=== PATIENT | female | born 1950 | race Caucasian/White ===

== ENCOUNTER 2019-08-12 06:08 | Day surgery (SDC) | payer MEDICARE ==
[2019-08-09 15:32] VITALS: BMI 25.0
[2019-08-12] MEDS ORDERED: Phenylephrine 2.5% Ophth Soln 5 ML BOT ONE (06:15)
[2019-08-12] MEDS ORDERED: Cyclopentolate 1% Opth Drop 2 ML BOT ONE (06:15)
[2019-08-12] MEDS ORDERED: Fluorouracil 100 MG, Enoxaparin Sodium 25 MG, EPINEPHrine 0.3 MG in Ophthalmic Irrigati... IRR SCH (06:25)
[2019-08-12] MEDS ORDERED: Midazolam HCl 2 mg/2 ml Vial ONE ×2 (06:40→06:42)
[2019-08-12] MEDS ORDERED: PROPOFOL 20 ML ONE (06:40)
[2019-08-12] MEDS ORDERED: Fentanyl 100 MCG/2 ML VIAL ONE (06:40)
--- NOTE | 2019-08-12 08:41 | OP ---
DATE OF PROCEDURE: 08/12/2019 PREOPERATIVE DIAGNOSIS: Macular hole, right eye. POSTOPERATIVE DIAGNOSIS: Macular hole, right eye. PROCEDURE PERFORMED: Pars plana vitrectomy, internal limiting membrane peel, right eye. ANESTHESIA: Local with monitored anesthesia care. DESCRIPTION OF PROCEDURE: The patient was identified in the preoperative holding area. Appropriate informed consent for the planned surgical procedure for the right eye had been obtained. The patient was transported to the operative suite. Appropriate cardiopulmonary monitoring was established. Local anesthesia was obtained using retrobulbar modified Van Lint lid block using 50:50 mixture of 4% lidocaine and 0.75% bupivacaine. The patient was prepped and draped in usual sterile manner for ophthalmic surgery on the right eye. Lid speculum was placed in the right eye. A 25-gauge trocar was placed in the conjunctiva sclera superotemporally, inferotemporally, supranasally. Infusion line was placed inferotemporally. Light pipe vitreous cutter was inserted into the eye. Core vitrectomy was performed. Posterior hyaloid face was noted to be rigidly adherent and peeled across the macula using vacuum after instillation of a small amount of Kenalog. Indocyanine green dye was infused on the posterior pole x1 identifying the internal limiting membrane and the epiretinal membrane. This was elevated using membrane scraper and peeled across the macula. Total peel was identified. Prophylactic laser was placed behind the sclerotomy sites. Complete air-fluid exchange was performed with 10 minutes being allowed for fluid to drain posteriorly. 28% sulfur hexafluoride gas was infused into the eye. Trocars were removed. The eye was noted to retain pressure well. Retrobulbar Kenalog subconjunctival Ancef was placed. Antibiotic ointment was placed. The eye was patched and shielded. The patient was taken to postop recovery unit in good condition, having suffered no immediate perioperative complications. The patient was instructed to keep patch shield on, avoid lifting or bending, avoid flat on back positioning. Followup appointment with Dr. Vann. Job ID: [id number]
[2019-08-12] MEDS ORDERED: Indocyanine Green 25 MG/10 ML VIAL ONE (13:44)
[2019-08-12] MEDS ORDERED: Triamcinolone 40 MG/ML VIAL ONE (13:44)
[2019-08-12] MEDS ORDERED: Lidocaine 4% PF 5 ML AMP ONE (13:44)
[2019-08-12] MEDS ORDERED: Bupivacaine PF 0.75% SDV 10 ML ONE (13:44)
[2019-08-12] MEDS ORDERED: Tobramycin/Dexamethasone Ophth Oint 3.5 GM TUBE ONE (13:44)
[2019-08-12] MEDS ORDERED: CEFAZOLIN 1 GM VIAL ONE (13:44)
[2019-08-12] MEDS ORDERED: Lidocaine 1% PF 5 ML VIAL ONE (13:44)
== END 2019-08-12 08:55 | disposition home or self-care (01) ==
LOC: SDC 06:08
PROVIDERS: ATTEND Ophthalmology Retina Specialist
PROC: 08T43ZZ Resection of Right Vitreous, Percutaneous Approach (ICD-10-PCS; principal; 2019-08-12)
PROC: 08NE3ZZ Release Right Retina, Percutaneous Approach (ICD-10-PCS; 2019-08-12)
DX: H35.341 Macular cyst, hole, or pseudohole, right eye (principal); Z79.51 Long term (current) use of inhaled steroids; Z79.899 Other long term (current) drug therapy; Z88.8 Allergy status to other drugs, medicaments and biological substances
CPT/HCPCS: 67025; J0171; J0690; J1650; J2001; J2250; J2704; J3010; J3301; J3490; J9190